=== PATIENT | male | born 1975 | race Caucasian/White ===

== ENCOUNTER 2022-02-15 05:43 | Outpatient (CLI) | payer BC ==
[~2022-02-15] VITALS: Ht 180.3 cm; Wt 152.9 kg
[~2022-02-15 05:43] MED LIST: ALPR.25T PO; CITA20TA4 PO; FISH1CAP15 PO; FOLI0.8T PO; NEBI20TA2 PO; NFNEB10T PO; PANT20TA2 PO; PRD5T PO; SMV20T PO
[2022-02-15] MEDS ORDERED: MONT-40 PO (12:39)
[2022-02-15] MEDS ORDERED: SITA1TAB6 PO (12:39)
[2022-02-15] MEDS ORDERED: CARV25TA PO (12:39)
[2022-02-15] MEDS ORDERED: RT-ALBUINH INH (12:39)
[2022-02-15] MEDS ORDERED: DULA0.75 SQ (12:39)
== END 2022-02-15 12:43 | disposition home or self-care (01) ==
LOC: PREOP 05:43
PROVIDERS: ATTEND Surgery
DX: Z01.818 Encounter for other preprocedural examination (principal); Z12.11 Encounter for screening for malignant neoplasm of colon

== ENCOUNTER 2022-02-23 09:37 | Day surgery (SDC) | payer BC ==
[~2022-02-23] VITALS: Ht 180.3 cm; Wt 152.9 kg
[~2022-02-23 09:37] MED LIST changes: +CARV25TA PO; +DULA0.75 SQ; +MONT-40 PO; +RT-ALBUINH INH; +SITA1TAB6 PO
[2022-02-23] MEDS ORDERED: LACTATED RINGERS 1,000 ML IV STA (09:39)
[2022-02-23] MEDS ORDERED: LACTATED RINGERS 1,000 ML IV ONE (09:52)
--- NOTE | 2022-02-23 09:55 | Progress Note-Pre Operative ---
Pre-Operative Progress Note Date of Available H&P: Jan 25, 2022 Date H&P Reviewed: Feb 23, 2022 Time H&P Reviewed: 09:53 History & Physical: H&P Reviewed, Patient Examed, No changes noted Pre-Operative Diagnosis: Screening colonoscopy EMILY DALLAS DO Feb 23, 2022 09:55
[2022-02-23 10:00] VITALS: BP 150/96
[2022-02-23] MEDS ORDERED: fentaNYL INJ 100 MCG/2 ML AMP IVP ONE (10:15)
[2022-02-23] MEDS ORDERED: fentaNYL INJ 100 MCG/2 ML AMP ONE (10:17)
[2022-02-23] MEDS ORDERED: MIDAZOLAM 2 MG/2 ML (VERSED) VIAL ONE (10:21)
[2022-02-23] MEDS ORDERED: PROPOFOL INJECTION 50 ML IV ONE (10:21)
--- NOTE | 2022-02-23 10:50 | Discharge Inst-Simple/Standard ---
Discharge Inst-Standard Patient Instructions/Follow Up Plan of Care/Instructions/FU: Repeat colonoscopy in 10 years. Follow up in 5 years if family history of colon cancer. If any issues prior, can be seen at that time. Activity as Tolerated: Yes Discharge Diet: No Restrictions, Regular Diet EMILY DALLAS DO Feb 23, 2022 10:50
[2022-02-23 10:53] VITALS: BP 154/88
[2022-02-23 10:55] VITALS: BP 140/86
[2022-02-23 11:20] VITALS: BP 140/86
--- NOTE | 2022-02-23 13:43 | Anesthesia-General Post-Op ---
MAC Patient Condition Mental Status/LOC: Same as Preop Cardiovascular: Satisfactory Nausea/Vomiting: Absent Respiratory: Satisfactory Pain: Controlled Complications: Absent Post Op Complications Complications None Follow Up Care/Instructions Patient Instructions None needed. Anesthesiology Discharge Order Discharge Order Patient is doing well, no complaints, stable vital signs, no apparent adverse anesthesia problems. No complications reported per nursing. JULI PANDA CRNA Feb 23, 2022 13:43
--- NOTE | 2022-02-23 22:03 | OPERATIVE REPORT ---
DATE OF SERVICE: 02/23/2022 PREOPERATIVE DIAGNOSIS: Screening colonoscopy. POSTOPERATIVE DIAGNOSIS: Normal colon. PROCEDURE: Colonoscopy. SURGEON: Emily Spaulding DO ANESTHESIA: Per [employer]. ESTIMATED BLOOD LOSS: None. SPECIMENS: None. INDICATIONS: The patient is a 46-year-old male, needing screening colonoscopy. He understands the risks and benefits of the procedure and wished to proceed. Consent was signed in the chart. DESCRIPTION OF PROCEDURE: The patient was taken to endoscopy suite and placed in left lateral position. Timeout was performed. Digital rectal exam was performed. No palpable polyps, masses or ulcerations. Scope was inserted in the rectum and all the way to the cecum with minimal difficulty. Prep was adequate. The scope was then slowly retracted back. No polyps, masses or ulcerations in the cecum, ascending, transverse, descending and sigmoid colon. Once in the rectum, scope was retroflexed. No other pathology. Scope was returned to its normal position and slowly withdrawn until completely removed. The patient tolerated the procedure well without complications, taken to recovery room in stable condition. RECOMMENDATIONS: The patient will need repeat colonoscopy in 10 years unless family history of colon cancer, which would then be 5 years. Any issues before then, would be seen at that time. Job ID: [id number] DocumentID: [id number] Dictated Date: 02/23/2022 10:49:54 [employer]er Date: 02/23/2022 22:02:00 Dictated By: EMILY SPAULDING DO
== END 2022-02-23 11:20 | disposition home or self-care (01) ==
LOC: ENDO 09:37
PROVIDERS: ATTEND Surgery
DX: Z12.11 Encounter for screening for malignant neoplasm of colon (principal); E11.9 Type 2 diabetes mellitus without complications; K21.9 Gastro-esophageal reflux disease without esophagitis; G47.33 Obstructive sleep apnea (adult) (pediatric); E66.01 Morbid (severe) obesity due to excess calories; Z68.42 Body mass index [BMI] 45.0-49.9, adult; Z79.84 Long term (current) use of oral hypoglycemic drugs; Z79.85 Long-term (current) use of injectable non-insulin antidiabetic drugs
CPT/HCPCS: 82947